=== PATIENT | female | born 2005 | race Caucasian/White ===

== ENCOUNTER → 2024-03-27 | Outpatient (REF) | payer BC, OTHER ==
[~2024-03-27] MED LIST: TYLENOL ELIXIR PO
== END ==
LOC: M SFHCWAGY 14:57
PROVIDERS: ATTEND Nurse Practitioner Family
DX: R10.2 Pelvic and perineal pain (principal)

== ENCOUNTER → 2024-04-02 | Outpatient (REF) | payer BC | LOC: M SFHCWAGY 14:53 | PROVIDERS: ATTEND Nurse Practitioner Family | DX: R10.2 Pelvic and perineal pain (principal) ==

== ENCOUNTER → 2024-08-15 | Outpatient (CLI) | payer BC | LOC: M WHC 15:20 | PROVIDERS: ATTEND Nurse Practitioner Family | DX: R10.2 Pelvic and perineal pain (principal); N88.8 Other specified noninflammatory disorders of cervix uteri ==